=== PATIENT | female | born 1960 | race Caucasian/White ===

== ENCOUNTER 2023-08-06 08:20 | Day surgery (SDC) | payer OTHER ==
[2023-08-02 15:50] VITALS: BMI 23.3
[2023-08-02 16:22] LABS: Hemoglobin 14.4 g/dL (12.0-15.5); Mean Corpuscular HGB CONC 34.3 g/dL (32.0-36.0); Mean Corpuscular Hemoglobin 28.5 pg (27.0-33.0); Platelet Count 293 10x3/uL (150-450); RBC Distribution Width 12.2 % (11.5-14.5); Red Blood Cell (RBC) Count 5.06 10x6/uL (3.90-5.03); White Blood Cell (WBC) Count 5.1 10x3/uL (3.5-10.5)
[2023-08-06] MEDS ORDERED: Gabapentin 300 MG CAP ONE (08:41)
[2023-08-06] MEDS ORDERED: CeleCOXIB 100 MG CAP ONE (08:42)
[2023-08-06] MEDS ORDERED: Famotidine/PF 20 mg/2ml Vial ONE (08:42)
[2023-08-06] MEDS ORDERED: Bupivacaine PF 0.5% 30 ML VIAL ONE (09:04)
[2023-08-06] MEDS ORDERED: Lidocaine 0.5%/Epinephrine 1:200,000 50 ml Vial ONE (09:04)
[2023-08-06] MEDS ORDERED: CEFAZOLIN 2 GM VIAL ONE (10:07)
[2023-08-06] MEDS ORDERED: Ondansetron PF 4 MG/2 ML Vial ONE (10:09)
[2023-08-06] MEDS ORDERED: Ketorolac Tromethamine 30 MG (1 mL) VIAL ONE (10:09)
[2023-08-06] MEDS ORDERED: Lidocaine 1% PF 5 ML VIAL ONE (10:09)
[2023-08-06] MEDS ORDERED: PROPOFOL 20 ML ONE (10:09)
[2023-08-06] MEDS ORDERED: fentaNYL 50 mcg/mL 1 mL Vial ONE (10:09)
[2023-08-06] MEDS ORDERED: Esmolol 100 MG/10 ML VIAL ONE (10:09)
[2023-08-06] MEDS ORDERED: Rocuronium Bromide 10 MG/ML (10ML VIAL) ONE (10:09)
[2023-08-06] MEDS ORDERED: Dexamethasone 4 mg/ml Vial ONE (10:09)
[2023-08-06] MEDS ORDERED: Lidocaine 1% w/Epinephrine 1:200K 30 ML VIAL ONE (10:40)
[2023-08-06] MEDS ORDERED: EPINEPHrine 1 MG/ML AMP ONE (11:23)
[2023-08-06] MEDS ORDERED: HYDROmorphone 0.5 MG/0.5 ML SYRINGE ONE (11:49)
[2023-08-06] MEDS ORDERED: SUGAMMADEX SODIUM 200 MG/2 ML VIAL ONE (11:49)
[2023-08-06] MEDS ORDERED: HYDROcodone/Acetaminophen 5/325 mg Tablet PO PRN (13:19)
[2023-08-06] MEDS ORDERED: Acetaminophen 325 MG TAB PO PRN (13:19)
[2023-08-06] MEDS ORDERED: Bisacodyl 10 MG SUPP PR PRN (13:19)
[2023-08-06] MEDS ORDERED: Ondansetron PF 4 MG/2 ML Vial IVP PRN (13:19)
[2023-08-06] MEDS ORDERED: diphenhydrAMINE 25 MG CAP PO PRN (13:19)
[2023-08-06] MEDS ORDERED: Promethazine HCl 25 MG/ML VIAL IM PRN (13:19)
[2023-08-06] MEDS ORDERED: Simethicone Chewable 80 MG TAB PO PRN (13:19)
[2023-08-06] MEDS ORDERED: Meperidine HCl/PF 25 MG (1 mL) VIAL ONE (14:10)
[2023-08-06] MEDS: fentaNYL 50 mcg/mL 1 mL Vial SLOW IVP PRN (15:17)
[2023-08-06] MEDS: Sodium Chloride 0.9% 1,000 ML IV SCH (17:24)
[2023-08-06] MEDS: Ketorolac Tromethamine 30 MG (1 mL) VIAL IVP SCH (17:44)
[2023-08-06] MEDS: Zolpidem Tartrate 5 MG TAB PO PRN (19:53)
[2023-08-07] MEDS: Docusate Calcium (SURFAK) 240 MG CAP PO SCH (01:00)
[2023-08-07] MEDS: Docusate 100 MG CAP PO SCH ×2 (03:09→09:10)
[2023-08-07 04:27] LABS: Hematocrit 34.6 % (34.9-44.5); Hemoglobin 12.2 g/dL (12.0-15.5); Mean Corpuscular HGB CONC 35.3 g/dL (32.0-36.0); Mean Corpuscular Hemoglobin 29.3 pg (27.0-33.0); Mean Platelet Volume 10.2 fl (7.4-10.4); Platelet Count 237 10x3/uL (150-450); Red Blood Cell (RBC) Count 4.17 10x6/uL (3.90-5.03); White Blood Cell (WBC) Count 8.7 10x3/uL (3.5-10.5)
[2023-08-07] MEDS: HYDROcodone/Acetaminophen 5/325 mg Tablet PO PRN (12:01)
[2023-08-07 15:01] VITALS: BP 119/58; TEMP 97.9
[2023-08-12] MEDS ORDERED: Ibuprofen 800 MG TAB PO SCH (06:00)
== END 2023-08-07 15:35 | disposition home or self-care (01) ==
LOC: CSHSDC 08:20 → CSHPED 14:50 → CSHSDC 08-07 15:35
PROVIDERS: ATTEND Student in an Organized Health Care Education/Training Program
PROC: 0UB24ZZ Excision of Bilateral Ovaries, Percutaneous Endoscopic Approach (ICD-10-PCS; principal; 2023-08-06)
PROC: 0UT94ZZ Resection of Uterus, Percutaneous Endoscopic Approach (ICD-10-PCS; principal; 2023-08-06)
PROC: 0UB74ZZ Excision of Bilateral Fallopian Tubes, Percutaneous Endoscopic Approach (ICD-10-PCS; principal; 2023-08-06)
PROC: 0JQC0ZZ Repair Pelvic Region Subcutaneous Tissue and Fascia, Open Approach (ICD-10-PCS; principal; 2023-08-06)
DX: N81.2 Incomplete uterovaginal prolapse (principal); N72 Inflammatory disease of cervix uteri; N87.0 Mild cervical dysplasia; E03.9 Hypothyroidism, unspecified; Z79.890 Hormone replacement therapy; Z90.89 Acquired absence of other organs
CPT/HCPCS: 36415; 85027; 86850; 86900; 86901; 88307; J0171; J0665; J1100; J1170; J1885; J2001; J2175; J2405; J2704; J3010; J7050; Q9968; S0028